=== PATIENT | female | born 1980 | race Two or more races ===

== ENCOUNTER 2019-10-16 12:38 | Emergency (ER) | payer OTHER ==
[~2019-10-16] VITALS: Ht 162.6 cm; Wt 49.9 kg
[2019-10-16 13:18] VITALS: BP 109/65
[2019-10-16] MEDS ORDERED: METHOCARBAMOL 500 MG TAB PO ONE (13:45)
== END 2019-10-16 14:32 | disposition home or self-care (01) ==
LOC: ER 12:38
DX: R51 Headache (principal)

== ENCOUNTER 2020-10-29 10:30 | Emergency (ER) | payer BC, OTHER ==
[~2020-10-29] VITALS: Ht 162.6 cm; Wt 52.2 kg
[2020-10-29 12:08] LABS: Urine Bacteria FEW /hpf (None Seen); Urine Blood Negative /uL (Negative); Urine Specific Gravity 1.005 (1.001-1.035); Urine WBC <1 /hpf (0 - 5)
[2020-10-29 13:13] VITALS: BP 148/83
[2020-10-29 13:44] LABS: Basophils # (auto) 0 10 ^3/uL (0-0.2); Eosinophils # (auto) 0.1 10 ^3/uL (0-0.8); Hemoglobin 10.6 g/dL (12.2-16.2); Lymphocytes # (auto) 1.8 10 ^3/uL (0.4-5.4); Monocytes # (auto) 0.5 10 ^3/uL (0-1.3); Monocytes % (auto) 7.8 % (0.0-12.0)
[2020-10-29 13:45] LABS: Basophils % (auto) 0.4 % (0.0-2.0); Eosinophils % (auto) 1.4 % (0.0-7.0); Hematocrit 32.8 % (36.0-46.0); Lymphocytes % (auto) 28.3 % (10.0-50.0); Mean Corpuscular Hemoglobin 23.9 pg (28.0-32.0); Mean Corpuscular Hgb Conc. 32.3 g/dL (32.0-36.0); Mean Corpuscular Volume 73.9 fL (80.0-100.0); Neutrophils # (auto) 3.9 10 ^3/uL (1.6-8.6); Neutrophils % (auto) 62.1 % (37.0-80.0); Nucleated Red Blood Cells % 0.1 %; Red Blood Cells 4.43 10^6/uL (4.0-5.20); Red Cell Distribution Width 16.3 % (11.8-14.3); White Blood Cell 6.3 10^3/uL (4.4-10.8)
[2020-10-29 14:01] LABS: Alanine Aminotransferase 15 U/L (13-56); Albumin 3.7 g/dL (3.4-5.0); Aspartate Aminotransferase 13 U/L (15-37); Blood Urea Nitrogen 7 mg/dL (7-18); Calcium 8.8 mg/dL (8.5-10.1); Carbon Dioxide 25 mmol/L (21-32); Glucose 103 mg/dL (74-106)
[2020-10-29 14:16] LABS: Alkaline Phosphatase 57 U/L (45-117); Anion Gap 10 (5-15); BUN/Creatinine Ratio 10.9; Bilirubin, Total 0.2 mg/dL (0.2-1.0); Chloride 105 mmol/L (98-107); GFR African American 134 mL/min; GFR Non-African American 110 mL/min; Potassium 3.5 mmol/L (3.5-5.1); Sodium 140 mmol/L (136-145); Total Protein 8.1 g/dL (6.4-8.2)
[2020-10-29 14:33] LABS: Thyroid Stimulating Hormone 1.58 uIU/mL (0.358-3.74)
== END 2020-10-29 17:05 | disposition home or self-care (01) ==
LOC: ER 10:30
DX: U07.1 COVID-19 (principal); D64.9 Anemia, unspecified
CPT/HCPCS: 36415; 71045; 80053; 81001; 84443; 84484; 84702; 85025; 85379; 93005